=== PATIENT | male | born 1995 | race Caucasian/White ===

== ENCOUNTER 2022-03-26 11:15 | Emergency (ER) | payer MEDICAID ==
[~2022-03-26] VITALS: Ht 177.8 cm; Wt 101.0 kg
[2022-03-26 13:59] LABS: CHLORIDE 104 mEq/L (98-107)
[2022-03-26] MEDS ORDERED: DEXAMETHASONE 10 MG/ML VIAL IV ONE (14:00)
[2022-03-26 14:33] VITALS: BP 148/80
[2022-03-26 18:10] LABS: BASOPHILS % 0.8 % (0.0-2.0); EOSINOPHILS % 2.5 % (0.0-5.0); HEMATOCRIT. 49.3 % (42.0-52.0); HEMOGLOBIN. 16.6 g/dL (14.0-18.0); LYMPHOCYTES % 32.2 % (20.0-50.0); MEAN CORPUSCULAR HEMOGLOBIN 29.5 pg (28.0-32.0); MEAN CORPUSCULAR VOLUME 87.5 fL (80.0-94.0); MEAN PLATELET VOLUME 9.1 fl (7.4-10.4); MONOCYTES % 6.3 % (2.0-8.0); NEUTROPHILS % 58.2 % (40.0-76.0); PLATELET 274 x1000/uL (130-400); RED BLOOD CELL COUNT 5.63 mill/uL (4.7-6.1); RED CELL DISTRIBUTION WIDTH 13.1 % (11.6-14.6)
== END 2022-03-26 15:21 | disposition short-term general hospital (02) ==
LOC: ER 11:15 → CANBEDREQ 14:33 → ER 15:21
DX: R93.0 Abnormal findings on diagnostic imaging of skull and head, not elsewhere classified (principal); R29.810 Facial weakness
CPT/HCPCS: 36415; 70450; 80053; 82962; 85025; 86850; 86900; 86901; 96374; 99291; J1100

== ENCOUNTER 2022-11-07 23:32 | Emergency (ER) | payer MEDICAID ==
[~2022-11-07] VITALS: Ht 175.3 cm; Wt 102.2 kg
[2022-11-07 23:39] VITALS: PULSE 75; RESP 16
[2022-11-07 23:53] VITALS: BP 146/77; TEMP 98; O2SAT 99
[2022-11-08] MEDS ORDERED: KETOROLAC 30MG/ML VIAL IM ONE (00:30)
== END 2022-11-08 00:58 | disposition home or self-care (01) ==
LOC: ER 23:32
DX: R51.9 Headache, unspecified (principal); R42 Dizziness and giddiness
CPT/HCPCS: 99283; 96372; J1885; Z7610; A4315